=== PATIENT | female | born 1980 | race Caucasian/White ===

== ENCOUNTER 2017-06-15 10:57 | Emergency (ER) | payer BC, OTHER ==
[~2017-06-15] VITALS: Ht 160 cm; Wt 67.0 kg
[2017-06-15] MEDS ORDERED: SODIUM CHLORIDE 0.9% FLUSH 10 ML FLUSH IVF PRN (11:00)
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
[2017-06-15 11:06] VITALS: BP 145/92; PULSE 84; RESP 16; TEMP 98.2; O2SAT 100
--- NOTE | 2017-06-15 11:16 | RADRPT ---
EXAM DATE/TIME: 06/15/2017 11:08 [facility] COMPARISON: No previous studies available for comparison. INDICATIONS : Chest pain, short of breath. MEDICAL HISTORY : None. SURGICAL HISTORY : None. ENCOUNTER: Initial ACUITY: 1 day PAIN SCORE: 4/10 LOCATION: Bilateral chest FINDINGS: A single view of the chest demonstrates the lungs to be symmetrically aerated without evidence of mas s, infiltrate or effusion. The cardiomediastinal contours are unremarkable. Osseous structures are intact. CONCLUSION: No acute disease. Trevor Hernandez MD on June 15, 2017 at 11:13 Board Certified Radiologist. This report was verified electronically.
[2017-06-15 11:49] VITALS: BP 119/81; PULSE 72; RESP 16; O2SAT 99
[2017-06-15 11:51] LABS: AUTOMATED NEUTROPHIL # 4.4 TH/MM3 (1.8-7.7); BASOPHIL % 0.6 % (0.0-2.0); EOSINOPHIL # 0.1 TH/MM3 (0-0.4); EOSINOPHIL % 1.5 % (0.0-4.0); HEMATOCRIT 39.8 % (35.0-46.0); HEMOGLOBIN 13.7 GM/DL (11.6-15.3); LYMPH % 32.6 % (9.0-44.0); LYMPHOCYTE # 2.4 TH/MM3 (1.0-4.8); MEAN CELL VOLUME 89.3 FL (80.0-100.0); MEAN CORPUSCULAR HEMOGLOBIN 30.7 PG (27.0-34.0); MEAN CORPUSCULAR HGB CONC 34.4 % (32.0-36.0); MEAN PLATELET VOLUME 8.3 FL (7.0-11.0); MONO % 6.2 % (0.0-8.0); MONOCYTE # 0.5 TH/MM3 (0-0.9); NEUT % 59.1 % (16.0-70.0); PLATELET COUNT 285 TH/MM3 (150-450); RED BLOOD COUNT 4.46 MIL/MM3 (4.00-5.30); RED CELL DISTRIBUTION WIDTH 11.6 % (11.6-17.2); WHITE BLOOD COUNT 7.4 TH/MM3 (4.0-11.0)
[2017-06-15 11:56] LABS: CHLORIDE 106 MEQ/L (98-107); SODIUM (NA) 139 MEQ/L (136-145)
[2017-06-15 12:02] LABS: ALBUMIN 4.2 GM/DL (3.4-5.0); BICARBONATE 25.2 MEQ/L (21.0-32.0); BLOOD UREA NITROGEN 18 MG/DL (7-18); GLUCOSE,RANDOM 94 MG/DL (74-106)
[2017-06-15 12:05] LABS: ALT (GPT) 29 U/L (10-53); AST (GOT) 26 U/L (15-37); CREATININE 0.74 MG/DL (0.50-1.00); GLOMERULAR FILTRATION RATE 90 ML/MIN (>89)
[2017-06-15 12:06] LABS: TOTAL PROTEIN 7.6 GM/DL (6.4-8.2)
[2017-06-15 12:08] LABS: ALKALINE PHOSPHATASE 63 U/L (45-117)
[2017-06-15 12:10] LABS: TROPONIN I LESS THAN 0.02 NG/ML (0.02-0.05)
[2017-06-15 13:00] VITALS: BP 116/69; PULSE 68; RESP 16; O2SAT 99
--- NOTE | 2017-06-15 13:31 | RADRPT ---
EXAM DATE/TIME: 06/15/2017 13:14 [facility] COMPARISON: No previous studies available for comparison. INDICATIONS : Headache. RADIATION DOSE: 62.10 CTDIvol (mGy) MEDICAL HISTORY : None SURGICAL HISTORY : Umbilical hernia repair. ENCOUNTER: Initial ACUITY: 1 day PAIN SCALE: 1/10 LOCATION: cranial TECHNIQUE: Multiple contiguous axial images were obtained of the head. Using automated exposure control and adj ustment of the mA and/or kV according to patient size, radiation dose was kept as low as reasonably a chievable to obtain optimal diagnostic quality images. DICOM format image data is available electro nically for review and comparison. FINDINGS: CEREBRUM: The ventricles are normal for age. No evidence of midline shift, mass lesion, hemorrhage or acute in farction. No extra-axial fluid collections are seen. POSTERIOR FOSSA: The cerebellum and brainstem are intact. The 4th ventricle is midline. The cerebellopontine angle i s unremarkable. EXTRACRANIAL: The visualized portion of the orbits is intact. SKULL: The calvaria is intact. No evidence of skull fracture. CONCLUSION: 1. Unremarkable CT brain. Trevor Hernandez MD on June 15, 2017 at 13:28 Board Certified Radiologist. This report was verified electronically.
[2017-06-15 14:13] VITALS: BP 113/84
--- NOTE | 2017-06-16 00:09 | EKG ---
Date Performed: 06/15/2017 Time Performed: 11:02:26 PTAGE: 36 years EKG: Sinus rhythm WITH SHORT [place] INTERVAL MILD ST DEPRESSION ABNORMAL ECG PREVIOUS TRACING : 04/14/2016 13.15 Since the prior tracing, there has been no significant trevino DOCTOR: Reynold Rizzo Interpretating Date/Time 06/16/2017 00:08:21
== END 2017-06-15 14:16 | disposition home or self-care (01) ==
LOC: PHED 10:57
DX: G43.009 Migraine without aura, not intractable, without status migrainosus (principal); R06.00 Dyspnea, unspecified; R94.31 Abnormal electrocardiogram [ECG] [EKG]
CPT/HCPCS: 70450; 71045; 80053; 83735; 84484; 84703; 85025; 85379; 93005